=== PATIENT | female | born 1980 | race Caucasian/White ===

== ENCOUNTER 2016-07-15 09:00 | Emergency (ER) | payer BC ==
[~2016-07-15] VITALS: Ht 154.9 cm; Wt 59.0 kg
[2016-07-15 09:08] VITALS: BP 114/75
== END 2016-07-15 10:08 | disposition home or self-care (01) ==
LOC: ER 09:05
DX: S13.9XXA Sprain of joints and ligaments of unspecified parts of neck, initial encounter (principal); S80.02XA Contusion of left knee, initial encounter; E03.9 Hypothyroidism, unspecified; Z88.0 Allergy status to penicillin; V89.2XXA Person injured in unspecified motor-vehicle accident, traffic, initial encounter; Y93.89 Activity, other specified; Y92.89 Other specified places as the place of occurrence of the external cause; Y99.9 Unspecified external cause status
CPT/HCPCS: A4606; Z7502; Z7610